=== PATIENT | male | born 1980 | race Caucasian/White ===

== ENCOUNTER → 2017-07-29 | Day surgery (SDC) | payer BC, OTHER ==
[2017-07-15 11:02] VITALS: Ht 175.3 cm; Wt 68.2 kg
--- NOTE | 2017-07-28 12:08 | History and Physical: Surg Cnt ---
History & Physical Date Jul 28, 2017. Chief Complaint nasal obstruction History of Present Illness The patient is a 37 year old male with complaints of deviated septum Additional History Hepatic Disease: No Endocrine Disorder: No Kidney Disease: No Hypertension: No Heart Disease: No Bleeding Tendencies: No Infectious Diseases: No Allergies Coded Allergies: NO KNOWN DRUG ALLERGIES (Verified Allergy, Unknown, ., 07/15/17) Home Medications Scheduled Multiple Vitamins W/ Minerals (Multivitamin Men), 1 TAB PO QAM Scheduled PRN Albuterol Hfa (Ventolin Hfa), 2-4 PUFFS INH Q6H PRN for Shortness of Breath Diphenhydramine Hcl (Benadryl), 25 MG PO DAILY PRN for ALLERGY RELIEF Loratadine (Claritin), 10 MG PO DAILY PRN for ALLERGY RELIEF Zolpidem Tartrate (Ambien), 5 MG PO HS PRN for Sleep Physical Examination Skin: warm/dry, no rash Eyes: normal inspection, EOMI, sclerae normal ENT: normal ENT inspection, pharynx normal Head: normocephalic, atraumatic Neck: supple, no adenopathy, trachea midline Respiratory/Chest: lungs clear, normal breath sounds, no respiratory distress Cardiovascular: regular rate, rhythm, no edema, no murmur Abdomen / GI: normal bowel sounds, non tender Back: normal inspection Extremities: normal inspection, normal range of motion Neurologic/Psych: no motor/sensory deficits, alert, normal reflexes, oriented x 3 Diagnosis septal deviation Plan of Treatment septoplasty, Celon turbinates
[~2017-07-29] VITALS: Ht 175.3 cm; Wt 68.2 kg
[~2017-07-29] MED LIST: ATROPINE SULFATE 0.1 MG/ML 5ML SYR IV PRN; BACITRACIN OINT 15 GM TUBE ONE; CEFAZOLIN 1000MG IV PUSH 5 ML IV SCH; CLR10 PO; DEXAMETHASONE SOD INJ 4 MG/ML VIAL ONE; DIPH25CA5 PO; EpHEDrine SULFATE INJ 50 MG/ML AMP IV PRN; EpHEDrine SULFATE INJ 50 MG/ML AMP ONE; EpINEphrine INJ 1MG/ML AMP 1 MG/ML AMP ONE; FENTANYL CITRATE INJ 50 MCG/1 ML 2 ML VIAL ONE; FLUMAZENIL 0.1 MG/1 ML 10 ML VIAL IV ONE; HYDR-5688 PO; HYDROCODONE/ACETAMOPHEN 5/325MG TAB PO PRN; HYDROmorphone INJ 0.5 MG/0.5 ML SYR IV PRN; LIDO 2%/EPINEPHRINE 1:100000 20 ML VIAL INFIL ONE; LIDOCAINE 4% MPF SOAK 5 ML = 1 DOSE TOP ONE; LIDOCAINE HCL 2% 2 ML VIAL (20MG/ML) ONE; MIDAZOLAM HCL 1 MG/ML 2ML VIAL ONE; MULT-923 PO; ONDANSETRON INJ 2 MG/ML 2 ML VIAL IV PRN; ONDANSETRON INJ 2 MG/ML 2 ML VIAL ONE; OXYMETAZOLINE HCL 0.05% NA SPR 15 ML BTL ONE; PROMETHAZINE HCL INJ 12.5 MG in SODIUM CHLORIDE 0.9% 50ML 50 ML IV PRN; PROPOFOL IV EMULSION 10 MG/ML 20 ML VIAL IV ONE; SODIUM CHLORIDE 0.9% 1000ML 1,000 ML IV SCH; SODIUM CHLORIDE 0.9% INJ 10 ML VIAL ONE; VNTHFA/IN INH; ZOLP5TAB PO
[2017-07-29] MEDS: LACTATED RINGER'S 1000ML 1,000 ML IV SCH ×2 (06:41→08:12)
--- NOTE | 2017-07-29 06:46 | History & Physical Bridge Note ---
H&P Re-Evaluation Bridge Note: I have examined the patient, reviewed the History & Physical and in the interval since the performance of the History & Physical I have noted the following changes of clinical significance: No changes noted
[2017-07-29] MEDS: GELATIN SPONGE 12-7MM ONE ×2 (07:45→07:46)
--- NOTE | 2017-07-29 07:57 | Discharge Instructions-SurgCtr ---
Discharge Instructions Date of Service Jul 29, 2017. Visit Reason for Visit: Septal Deviation Discharge Discharge Diagnosis / Problem: same Discharge Goals Goal(s): Improve function Activity Recommendations Activity Limitations: resume your previous activity Anesthesia . Post Anesthesia Instructions: If you have had General Anesthesia or IV Sedation: * Do not drive today. * Resume driving when surgeon permits. * Do not make important decisions or sign legal documents today. * Call surgeon for: 1. Temperature elevations greater than 101 degrees F. 2. Uncontrollable pain. 3. Excessive bleeding. 4. Persistent nausea and vomiting. 5. Medication intolerance (nausea, vomiting or rash). * For nausea and vomiting use only clear liquids such as: tea, soda, bouillon until nausea subsides, then gradually increase diet as tolerated. * If you have any concerns or questions, call your surgeon's office. If physician is unavailable and it is an emergency, call 911 or go to the nearest emergency room. . Instructions / Follow-Up Instructions / Follow-Up ACTIVITY RECOMMENDATIONS: * Being up and around is good, but no strenuous activity, heavy lifting or physical exertion for one week. * Keep your head elevated 30 degrees when lying down or sleeping. * Do not blow your nose for 48 hours, sniff back instead. * Avoid hot showers. OVER THE COUNTER MEDICATIONS: * You may use Tylenol * Avoid aspirin or aspirin containing products, e.g. as they may increase bleeding. SPECIAL CARE INSTRUCTIONS: * Expect to have bloody drainage from your nose and/or down your throat for one to three days. Change drip pad as needed. * Begin irrigating your nose with saline solution today, at least six to ten times per day and sniff back to help remove old clots or crust. * You may experience nasal and facial congestion, pain and pressure, this is normal. * Please call with any significant and/or progressive pain, redness, swelling around the eyes, visual changes, fever of 101.5 degrees F, active bleeding or any problems or concerns. * If active bleeding occurs, spray the nose three times at one minute intervals with Afrin spray and call or cell phone: . If unable to reach the doctor, go to the nearest Emergency Department. Special Diet: * Avoid extremely hot fluids. FOLLOW UP VISIT: Follow-up Visit with Dr. Shen If not already scheduled, please call to schedule. Diet Recommendations Home Diet: no limitations Procedures Procedures Performed: Septoplasty, Celon Turbinates Pending Studies Studies pending at discharge: no Medical Emergencies . Who to Call and When: Medical Emergencies: If at any time you feel your situation is an emergency, please call 911 immediately. . Non-Emergent Contact Non-Emergency issues call your: Primary Care Provider . . "Provider Documentation" section prepared by Sindy Ray PA Drug Monitoring Program Search Results: no issues identified
--- NOTE | 2017-07-29 07:59 | [facility] Post Operative Brief Note ---
Immediate Operative Summary Operative Date Jul 29, 2017. Pre-Operative Diagnosis septal deviation Post-Operative Diagnosis same as preop Procedure(s) Performed Septoplasty, Celon Turbinates Surgeon Dr. Gotti Operating Room Technologist Surgeon(s) none Estimated Blood Loss 10ml Findings Consistent with Post-Op Diagnosis Specimens none per surgeon Drains None Anesthesia Type General Complication(s) none Disposition Disposition: Recovery Room / PACU
[2017-07-29] MEDS: FENTANYL CITRATE INJ 50 MCG/1 ML 2 ML VIAL IV PRN ×3 (08:09→08:23)
[2017-07-29 08:40] VITALS: TEMP 36.6
--- NOTE | 2017-07-29 08:41 | OPERATIVE REPORT ---
DATE OF OPERATION: 07/29/2017 PREOPERATIVE DIAGNOSES: Septal deviation and chronic rhinitis. POSTOPERATIVE DIAGNOSES: Same. PROCEDURE: Septoplasty and radiofrequency volume reduction of the inferior turbinates. SURGEON: Dr. Gotti. ANESTHESIA: General LMA. COMPLICATIONS: None. BLOOD LOSS: 10 mL HISTORY OF PRESENT ILLNESS: This 37-year-old gentleman presented with a long history of nasal obstruction with significant allergies, septal deviation to the left with significant obstruction. DESCRIPTION OF PROCEDURE: The patient was brought to the operating room and placed in supine position. General anesthesia was induced using LMA, prepped, draped in usual sterile manner. The nose was decongested using cottonoids with a topical solution of 4 mL of 4% Xylocaine mixed with 1 mL of epinephrine. Injection 2% Xylocaine with 1:100,000 strength epinephrine was also used. The inferior turbinates were treated with the Celon probe for radiofrequency volume reduction of the inferior turbinates creating 4 lesions in each inferior turbinate. The inferior turbinates were then fractured laterally. Attention was turned to the septum. The left hemitransfixion incision was made and mucoperichondrium elevated off the left side of the septum. Superior and inferior tunnels were elevated on the left side and then the cartilage from the vomer maxillary crest and bilateral posterior tunnels were elevated after the cartilage from the perpendicular plate of the ethmoid. A large bony cartilaginous spur was removed from the left side and the deviated portion of the perpendicular plate of the ethmoid toward the left was removed in small pieces using the Dung-Tiffanie rongeurs. A bone spur from the vomer projecting to the left was also removed with the rongeurs. The septum was closed using continuous mattress suture of 4-0 plain gut. Anterior nasal packing of Gelfoam was placed. The patient tolerated the procedure well and was taken to recovery area in satisfactory condition. I attest to the content of the Intraoperative Record and any orders documented therein. Any exceptions are noted below. MTDD
--- NOTE | 2017-07-29 08:55 | Anesthesia Progress Nt - [facility] ---
Anesthesia Post Op Note Date & Time Jul 29, 2017 at 08:55 Vital Signs Pain Intensity: 4.0 Vital Signs Past 12 Hours Date Time Temp Pulse Resp B/P (MAP) Pulse Ox O2 Delivery O2 Flow Rate FiO2 07/29/17 08:40 36.6 85 16 124/84 (97) 99 Room Air 07/29/17 08:31 82 14 136/76 97 07/29/17 08:31 36.6 81 14 07/29/17 08:26 86 11 132/81 100 07/29/17 08:26 86 11 07/29/17 08:21 86 13 07/29/17 08:21 84 13 127/81 100 07/29/17 08:16 86 13 07/29/17 08:16 84 13 134/78 100 07/29/17 08:11 83 11 136/84 100 07/29/17 08:11 86 11 07/29/17 08:06 87 15 141/80 100 07/29/17 08:06 87 15 07/29/17 08:02 36.6 92 16 130/74 100 Humidified Oxygen 6 Mask 07/29/17 08:01 130/74 07/29/17 06:24 36.6 72 16 123/85 (98) 98 Room Air Notes Mental Status: alert / awake / arousable, participated in evaluation Pt Amnestic to Procedure: Yes Nausea / Vomiting: adequately controlled Pain: adequately controlled Airway Patency, RR, SpO2: stable & adequate BP & HR: stable & adequate Hydration State: stable & adequate Anesthetic Complications: no major complications apparent
[2017-07-29 09:04] VITALS: BP 118/76; PULSE 78; O2SAT 100
== END | disposition home or self-care (01) ==
LOC: X.SURG 06:08
PROVIDERS: ATTEND Otolaryngology
DX: J34.2 Deviated nasal septum (principal); J31.0 Chronic rhinitis